=== PATIENT | male | born 1935 | race Caucasian/White ===

== ENCOUNTER 2017-12-27 20:11 | Emergency (ER) | payer MEDICARE, OTHER ==
--- NOTE | 2017-12-27 20:25 | ERNOTE ---
Medical Problem HPI - Narrative Date of Service: 12/27/17 - General Time Seen by Provider: 12/27/17 20:21 Source: patient, family - Immun/Allergies/Home Medications Immunizations: IMMUNIZATION HX Immunizations Up to Date Yes History of Influenza Vaccine No Hx Pneumococcal Vaccination No Allergies/Adverse Reactions: Allergies No Known Allergies Allergy (Verified 12/27/17 20:28) Home Medications: HOME MEDICATIONS Atenolol 25 mg PO HS 10/27/12 [Last Taken 05/19/15 21:00] Simvastatin 40 mg PO QAM 10/27/12 [Last Taken 05/20/15 08:00] Nitroglycerin [Nitrostat] 0.4 mg SL PRN PRN 12/09/12 [Last Taken Unknown] Carbidopa/Levodopa 25/100 [Sinemet 25/100] 1 tab PO QID 03/24/13 [Last Taken 10/23 16:00] Cholecalciferol (Vitamin D3) [Vitamin D3] 2,000 unit PO DAILY 03/12/15 [Last Taken 05/19/15 21:00] Memantine HCl [Namenda Xr] 28 mg PO DAILY 03/12/15 [Last Taken 05/20/15 08:00] Potassium Gluconate 90 mg PO BID 03/12/15 [Last Taken 05/20/15 13:00] Donepezil HCl 10 mg PO HS 05/20/15 [Last Taken 05/19/15 21:00] Cyanocobalamin [Vitamin B-12] 2,000 mcg PO DAILY #0 05/23/15 [Last Taken 08:00] Potassium Chloride 20 meq PO BID #4 packet 12/28/17 [Last Taken Unknown] - History of Present History Narrative: 82 year old who is a resident of the [place], and has a history of advanced Alzheimer's and Parkinson's disease was sent to the ED for evaluation for weakness in the evening. He fell once this morning prior to being sent to the ED. It was noticed that his tremor had gotten worse and was not able to reach for his pills. He was not able to stand as he usually does. No reported pain,fevers, coughing, vomiting or diarrhea, or chest pain. Date (Duration): 12/27/17 Time (Timing): 23:43 Timing: constant Severity: moderate Modifying Factors - (Improves): Present: other - nothing Modifying Factors - (Worsens): Present: other - nothing Review of Systems - Narrative Narrative: not able to give information - Patient's Past Medical History Patient History - Medical: No pertinent hx, Other Patient History - Cardiac/Respiratory: No pertinent hx Patient History - Cancer: Colon, Surgical Treatment Patient History - Surgical Procedures: Cancer Surgery, Colonoscopy, EGD, Other Patient History - Other: None - Family History Father Family History - Medical: Family History - Cardiac/Respiratory: CVA/Stroke Mother Family History - Medical: Family History - Cardiac/Respiratory: No pertinent hx - Social History Abuse History: No History of abuse Psych History: No pertinent hx - Immunizations Immunizations Up to Date: Yes Hx Pneumococcal Vaccination: No History of Influenza Vaccine: No Physical Exam - Physical Exam General Appearance: Present: no apparent distress Head Exam: Present: normal inspection Eye Exam: Normal inspection: bilateral Ears, Nose, Throat: Present: normal ENT inspection Neck: Present: normal inspection, supple Respiratory: Present: no respiratory distress Cardiovascular/Chest: Present: regular rate, rhythm Gastrointestinal/Abdominal: Present: nontender, nondistended Back Exam: Present: normal inspection Extremity Exam: Present: normal inspection Neurological Exam: Present: alert Skin Exam: Present: normal color ED Progress - Results and Orders Patient's Lab Results:: I have reviewed the patient's lab results. - Vital Signs Patient's Vital Signs:: I have reviewed the patient's vital signs. - EKG EKG read: Interp. by me EKG Comments: paced rhythm; rate 60 - X-Ray X-Ray #1 X-Ray: chest Interpretation: Interp. by me X-ray Comments: NAD - CT/Ultrasound CT/Ultrasound Narrative: No acute changes. - Progress/Reassessment Progress:: Improved Progress Note-Subjective: 12/28/17 01:16 The patient was able to ambulate approximately 100 feet with assistance. Departure Clinical Impression: Hypokalemia, Volume depletion - Departure Disposition: [facility] self-care Condition: Fair Instructions: Hyperkalemia, [id number] Print Language: Kazakh Additional Instructions: Have the potassium checked on Thursday. Prescriptions: Potassium Chloride 20 meq PO BID #4 packet
[2017-12-27 20:40] LABS: Hematocrit 42.1 % (42.0-52.0); Hemoglobin 13.6 gm/dL (13.5-18.0); Mean Cell Volume 92.1 fl (78-100); Mean Corpuscular Hemoglobin 29.8 pg (27-31); Mean Corpuscular Hgb Conc 32.3 g/dl (32-36); Mean Platelet Volume 11.1 fl (6.0-9.5); Neutrophil # 6.6 K/mm3 (1.3-6.0); Neutrophil % 68.5 % (42-75.0); Platelet Count 274 K/mm3 (150-450); Red Blood Count 4.57 M/mm3 (4.7-6.0); Red Cell Distribution Width 13.4 % (11.5-14.0); White Blood Count 9.6 K/mm3 (4.0-10.5)
[2017-12-27 20:59] LABS: Albumin * 2.6 gm/dl (3.4-5.0); Anion Gap 10.9 mmol/L (6.8-13.8); BUN/Creatinine Ratio 14.5 (9.0-21.6); Ca. Corrected For Albumin 9.2 mg/dL (8.4-10.2); Calcium * 8.4 mg/dL (7.9-10.9); Carbon Dioxide 31.8 mmol/L (24-32.6); Potassium 2.7 mmol/L (3.4-4.6); Total Protein 6.1 gm/dL (6.2-8.2); Troponin I 0.069 ng/ml (0.00-0.10)
[2017-12-27] MEDS ORDERED: POTASSIUM CHLORIDE 20 MEQ TABLET.SA PO ONE ×2 (21:16→23:30)
[2017-12-27] MEDS ORDERED: POTASSIUM CHLORIDE 20 MEQ TABLET.SA ONE ×2 (21:47→23:26)
[2017-12-27 22:14] LABS: Urine Bilirubin Negative (NEGATIVE); Urine Blood Negative /ul (NEGATIVE); Urine Ketone 5 mg/dL (NEGATIVE); Urine Nitrite Negative (NEGATIVE); Urine Protein 15 mg/dL (NEGATIVE); Urine Specific Gravity >=1.030 SP.GR. (1.005-1.030); Urine Urobilinogen Normal (NORMAL)
[2017-12-27 22:22] LABS: Urine Amorphous Sediment Few - 1+ (NONE-FEW); Urine Appearance Clear; Urine Bacteria None Seen; Urine Color Orange; Urine Mucus Few - 1+; Urine RBC None Seen /hpf (0-5); Urine WBC None Seen /hpf (0-5)
[2017-12-27] MEDS ORDERED: NORMAL SALINE 1,000 ML IV ONE (22:27)
[2017-12-28 01:57] LABS: Potassium 3.3 mmol/L (3.4-4.6)
[2017-12-28 01:59] LABS: BUN/Creatinine Ratio 16.3 (9.0-21.6); Estimated Creat Clear 61.7
[2017-12-28 02:00] LABS: Anion Gap 11.3 mmol/L (6.8-13.8)
[2017-12-28 02:48] VITALS: BP 143/71
== END 2017-12-28 02:30 | disposition home or self-care (01) ==
LOC: ER 20:11
DX: E87.6 Hypokalemia (principal); E86.9 Volume depletion, unspecified; Z85.038 Personal history of other malignant neoplasm of large intestine